=== PATIENT | male | born 1935 | race Caucasian/White ===

== ENCOUNTER 2019-12-22 16:11 | Emergency (ER) | payer MEDICAID ==
[~2019-12-22] VITALS: Ht 162.6 cm; Wt 50.0 kg
[2019-12-22] MEDS ORDERED: ONDANSETRON HCL 4MG/2ML INJ IV STA (16:36)
[2019-12-22] MEDS ORDERED: SODIUM CHLORIDE 0.9% 1,000 ML IV ONE (16:36)
[2019-12-22] MEDS ORDERED: LORAZEPAM 2MG/ML CPJ IV ONE (16:45)
[2019-12-22 17:06] LABS: BASOPHILS % 0.6 % (0.0-2.0); EOSINOPHILS % 0.1 % (0.0-5.0); HEMATOCRIT. 41.8 % (42.0-52.0); HEMOGLOBIN. 13.7 g/dL (14.0-18.0); LYMPHOCYTES % 7.7 % (20.0-50.0); MEAN CORPUSCULAR HEMOGLOBIN 29.3 pg (28.0-32.0); MEAN PLATELET VOLUME 9.5 fl (7.4-10.4); MONOCYTES % 4.6 % (2.0-8.0); PLATELET 179 x1000/uL (130-400); RED BLOOD CELL COUNT 4.69 mill/uL (4.7-6.1); RED CELL DISTRIBUTION WIDTH 14.4 % (11.6-14.6)
[2019-12-22 17:20] LABS: CHLORIDE 109 mEq/L (98-107)
[2019-12-22 17:58] VITALS: BP 149/76
== END 2019-12-22 19:45 ==
LOC: ER 16:11
DX: R11.2 Nausea with vomiting, unspecified (principal); F03.90 Unspecified dementia, unspecified severity, without behavioral disturbance, psychotic disturbance, mood disturbance, and anxiety; F20.9 Schizophrenia, unspecified; Z86.73 Personal history of transient ischemic attack (TIA), and cerebral infarction without residual deficits
CPT/HCPCS: 36415; 71045; 74018; 80053; 85025; 93005; 96361; 96374; 96375; 99285; J2060; J2405; J7030